=== PATIENT | female | born 1985 | race American Indian/Alaskan Native ===

== ENCOUNTER 2016-08-24 09:26 | Emergency (ER) | payer MEDICAID ==
[2016-08-24 10:03] VITALS: BP 131/87
--- NOTE | 2016-08-24 10:49 | XRay Report ---
Right 10 index finger 3 views: History: No acute abnormality. No fracture dislocation or periosteal reaction. Impression: Essentially negative right index finger.
--- NOTE | 2016-08-24 10:50 | XRay Report ---
Left wrist 3 views: History: Injury to left wrist. Findings: No articular abnormality. No fracture or dislocation. Impression: Essentially negative left wrist.
--- NOTE | 2016-08-24 11:17 | Emergency Department Report ---
ED Upper Extremity Inj HPI - General Chief Complaint: Extremity Injury, Upper Stated Complaint: LEFT WRIST PAIN Time Seen by Provider: 08/24/16 11:08 Source: patient Mode of arrival: Ambulatory Limitations: No Limitations - History of Present Illness Other Extremity Injury: Wrist: Left Other Injuries: none Severity scale (0 -10): 5 Worsens With: movement of extremity - Related Data Previous Rx's Medication Instructions Recorded Last Taken Type Fluconazole [Diflucan] 150 mg PO ONCE #1 tablet 07/15/14 Unknown Rx Phenazopyridine [Pyridium] 200 mg PO TID #10 tablet 07/15/14 Unknown Rx Sulfamethoxazole/Trimethoprim 1 each PO BID #20 tablet 07/15/14 Unknown Rx [Bactrim Ds] traMADol [Ultram] 50 mg PO Q6HR PRN #14 tablet 07/15/14 Unknown Rx Acetaminophen/Codeine [Tylenol #3] 1 tab PO Q6H PRN #15 tab 06/17/15 Unknown Rx traMADol [Ultram 50 MG tab] 50 mg PO Q4HR PRN #15 tablet 08/24/16 Unknown Rx Allergies Allergy/AdvReac Type Severity Reaction Status Date / Time No Known Allergies Allergy Unverified 08/24/16 10:03 ED Review of Systems ROS: Stated complaint: LEFT WRIST PAIN Other details as noted in HPI Patient complains of injuring the left wrist yesterday while lifting furniture. Denies falling down or dropping anything on her wrist patient just states it hurts from lifting heavy objects. Patient denies any other injuries or other complaints. Constitutional: denies: chills, fever Respiratory: denies: cough, shortness of breath, wheezing Musculoskeletal: arthralgia Skin: denies: rash, lesions ED Past Medical Hx - Past Medical History Previous Medical History?: No - Surgical History Past Surgical History?: Yes Additional Surgical History: tubal. tonsils - Social History Smoking Status: Current Every Day Smoker Substance Use Type: Alcohol, Marijuana - Medications Home Medications: Home Medications Medication Instructions Recorded Confirmed Last Taken Type Fluconazole [Diflucan] 150 mg PO ONCE #1 tablet 07/15/14 Unknown Rx Phenazopyridine [Pyridium] 200 mg PO TID #10 tablet 07/15/14 Unknown Rx Sulfamethoxazole/Trimethoprim 1 each PO BID #20 tablet 07/15/14 Unknown Rx [Bactrim Ds] traMADol [Ultram] 50 mg PO Q6HR PRN #14 tablet 07/15/14 Unknown Rx Acetaminophen/Codeine [Tylenol #3] 1 tab PO Q6H PRN #15 tab 06/17/15 Unknown Rx traMADol [Ultram 50 MG tab] 50 mg PO Q4HR PRN #15 tablet 08/24/16 Unknown Rx ED Physical Exam - General Limitations: No Limitations General appearance: alert, in no apparent distress - Head Head exam: Present: atraumatic, normocephalic - Eye Eye exam: Present: normal appearance - ENT ENT exam: Present: mucous membranes moist - Neck Neck exam: Present: normal inspection - Respiratory Respiratory exam: Absent: respiratory distress - Cardiovascular Cardiovascular Exam: Present: regular rate - Expanded Upper Extremity Exam Left Forearm Wrist exam: Present: tenderness. Absent: swelling, abrasion, ecchymosis , deformity, crepidus, tenderness over anatomical snuff box Hand Wrist exam: Present: normal inspection, full ROM. Absent: tenderness, swelling, abrasion, ecchymosis, deformity, crepidus, dislocation, erythema, nail avulsion, subungual hematoma Neuro motor exam: Present: wrist extension intact, thumb opposition intact Neurosensory exam: Present: 2-point discrimination, radial nerve intact, ulnar nerve intact Vascular: Present: normal capillary refill. Absent: vascular compromise - Back Exam Back exam: Present: normal inspection - Neurological Exam Neurological exam: Present: alert, oriented X3 - Skin Skin exam: Present: warm, dry, intact, normal color. Absent: rash ED Course Vital Signs 08/24/16 09:55 Temperature 99.1 F Pulse Rate 67 Respiratory 20 Rate Blood Pressure 131/87 O2 Sat by Pulse 98 Oximetry Critical care attestation.: If time is entered above; I have spent that time in minutes in the direct care of this critically ill patient, excluding procedure time. ED Disposition Clinical Impression: Left wrist sprain Disposition: DISCHARGED TO HOME OR SELFCARE Is pt being admited?: No Condition: Stable Instructions: Wrist Sprain (ED) Prescriptions: traMADol [Ultram 50 MG tab] 50 mg PO Q4HR PRN #15 tablet PRN Reason: Pain Forms: Work/School Release Form(ED)
== END 2016-08-24 11:37 | disposition home or self-care (01) ==
LOC: ED 09:26
DX: M25.532 Pain in left wrist (principal); S63.502A Unspecified sprain of left wrist, initial encounter; F17.200 Nicotine dependence, unspecified, uncomplicated; F12.90 Cannabis use, unspecified, uncomplicated; X58.XXXA Exposure to other specified factors, initial encounter; Y93.9 Activity, unspecified; Y99.9 Unspecified external cause status; Y92.89 Other specified places as the place of occurrence of the external cause

== ENCOUNTER 2017-05-09 12:17 | Emergency (ER) | payer MEDICAID ==
[2017-05-09 12:23] VITALS: BP 138/98
[2017-05-09] MEDS ORDERED: NORCO 7.5/325 PO ONE (12:56)
--- NOTE | 2017-05-09 13:26 | Emergency Department Report ---
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) Injury: Foot: Right Type of Injury: other (NO FALL OR SPECIFIC TRAUMA) Place: work Severity: mild Improves With: nothing Worsens With: nothing Context: other (NONE) - Related Data Previous Rx's Medication Instructions Recorded Last Taken Type traMADol [Ultram] 50 mg PO Q6HR PRN #12 tablet 05/09/17 Unknown Rx Allergies Allergy/AdvReac Type Severity Reaction Status Date / Time No Known Allergies Allergy Verified 05/09/17 12:20 ED Review of Systems ROS: Stated complaint: FOOT PAIN Other details as noted in HPI Comment: All other systems reviewed and negative Musculoskeletal: other (FOOT PAIN) ED Past Medical Hx - Past Medical History Previous Medical History?: No - Surgical History Additional Surgical History: tubal. tonsils - Social History Smoking Status: Current Every Day Smoker Substance Use Type: None - Medications Home Medications: Home Medications Medication Instructions Recorded Confirmed Last Taken Type traMADol [Ultram] 50 mg PO Q6HR PRN #12 tablet 05/09/17 Unknown Rx ED Physical Exam - General Limitations: No Limitations General appearance: alert - Eye Eye exam: Present: PERRL - ENT ENT exam: Present: mucous membranes moist - Neck Neck exam: Present: normal inspection - Respiratory Respiratory exam: Present: normal lung sounds bilaterally - Cardiovascular Cardiovascular Exam: Present: regular rate - GI/Abdominal GI/Abdominal exam: Present: soft - Rectal Rectal exam: Present: deferred - Extremities Exam Extremities exam: Present: full ROM, normal capillary refill, other (R LAT FOOT SOFT TISSUE SWELLING. GOOD DP/PT BILATERAL. RAPID CAP REFILL. FULL ROM. ). Absent: tenderness - Expanded Lower Extremity Exam Right Upper Leg exam: Present: normal inspection Knee exam: Present: normal inspection Lower Leg exam: Present: normal inspection Ankle exam: Present: normal inspection Foot/Toe exam: Present: swelling Gait: Positive: observed and normal 1 - SOFT TISSUE SWELLING. NOT OVER PLANTAR FAS. AREA. ACHILLES INTACT. GOOD PULSES. RAPID CAP REFILL. N/V INTACT ED Course Vital Signs 05/09/17 12:20 Temperature 98.3 F Pulse Rate 81 Respiratory 20 Rate Blood Pressure 138/98 O2 Sat by Pulse 97 Oximetry - Reevaluation(s) Reevaluation #1: 05/09/17 13:49 ICE MEDICATED XRAY NOTED ED Lower Extremity MDM - Radiology Data Radiology results: report reviewed, image reviewed - Medical Decision Making SOFT TISSUE SWELLING - Differential Diagnosis RO FX Critical care attestation.: If time is entered above; I have spent that time in minutes in the direct care of this critically ill patient, excluding procedure time. ED Disposition Clinical Impression: Foot pain Disposition: - TO HOME OR SELFCARE Is pt being admited?: No Does the pt Need Aspirin: No Condition: Stable Instructions: Foot Sprain (ED) Additional Instructions: ICE REST ELEVATE MOTRIN 800 MG OVER THE COUNTER, WITH FOOD, EVERY 8 HOURS FOR MILD PAIN; THIS TREATS THE PROBLEM ULTRAM FOR SEVERE PAIN INVEST IN SOME SHOES WITH ADEQUATE SUPPORT FOR WORK FOLLOW UP ORTHO IF PERSISTS XRAY NO FRACTURE TODAY Prescriptions: traMADol [Ultram] 50 mg PO Q6HR PRN #12 tablet PRN Reason: Pain Referrals: DEBBIE ROMERO JR, MD [Primary Care Provider] - 3-5 Days YORDY GREENE MD [Staff Physician] - 3-5 Days Forms: Work/School Release Form(ED) Time of Disposition: 13:50
--- NOTE | 2017-05-09 13:46 | XRay Report ---
X-RAY RIGHT FOOT THREE VIEWS: 05/09/17 12:23:00 CLINICAL: Pain. FINDINGS: No fracture or dislocation. Moderate soft tissue swelling of the forefoot and midfoot. No soft tissue air or foreign body. IMPRESSION: Nonspecific soft tissue edema. No bone or joint abnormality.
== END 2017-05-09 14:00 | disposition home or self-care (01) ==
LOC: ED 12:17
DX: M79.671 Pain in right foot (principal); F17.200 Nicotine dependence, unspecified, uncomplicated
CPT/HCPCS: 99283

== ENCOUNTER 2017-05-18 09:48 | Emergency (ER) | payer MEDICAID ==
[2017-05-18] MEDS ORDERED: DECADRON IV STA (10:36)
--- NOTE | 2017-05-18 10:36 | Emergency Department Report ---
HPI - General Chief Complaint: Upper Respiratory Infection Time Seen by Provider: 05/18/17 10:35 - HPI HPI: Patient here report that she has cough, cold, fever and chill, headache and body ache with nasal congestion, sore throat 2 days. She says she's been taking [id number] cough and cold but she is still having symptoms. Patient reports pain generalized 10 out of 10 and achy. Worse with moving around bed or resting. Denies any contact with anyone that has been sick but she said her daughter she also brought in got sick after her. Patient also complaining of nausea without any vomiting. The abdominal pain. Denies any chest pain or shortness of breath. Denies any urinary burning frequency or urgency. ED Past Medical Hx - Past Medical History Previous Medical History?: No - Surgical History Past Surgical History?: Yes Additional Surgical History: tubal. tonsils - Family History Family history: hypertension - Social History Smoking Status: Current Every Day Smoker Substance Use Type: None - Medications Home Medications: Home Medications Medication Instructions Recorded Confirmed Last Taken Type traMADol [Ultram] 50 mg PO Q6HR PRN #12 tablet 05/09/17 Unknown Rx Ibuprofen [Motrin] 600 mg PO Q8H PRN 5 Days #15 tablet 05/18/17 Unknown Rx Oseltamivir [Tamiflu] 75 mg PO BID 5 Days #10 cap 05/18/17 Unknown Rx Promethazine [Phenergan TAB] 25 mg PO Q8HR PRN 4 Days #12 tab 05/18/17 Unknown Rx guaiFENesin/CODEINE [Robitussin AC] 5 ml PO Q8H PRN 5 Days #75 05/18/17 Unknown Rx oral.liqd ED Review of Systems ROS: Stated complaint: BODY PAINS Other details as noted in HPI Comment: All other systems reviewed and negative Constitutional: weakness Eyes: denies: eye pain, eye discharge ENT: throat pain, congestion. denies: ear pain, dental pain Respiratory: cough. denies: orthopnea, shortness of breath, SOB with exertion, SOB at rest, stridor, wheezing Cardiovascular: denies: chest pain, palpitations, dyspnea on exertion, orthopnea , edema, syncope, paroxysmal nocturnal dyspnea Gastrointestinal: denies: abdominal pain, nausea, vomiting, diarrhea, constipation, hematemesis, melena, hematochezia Genitourinary: discharge. denies: urgency, dysuria, frequency, hematuria, abnormal menses, dyspareunia Musculoskeletal: myalgia. denies: back pain, joint swelling, arthralgia Skin: denies: rash Neurological: headache. denies: weakness, numbness, paresthesias, confusion, abnormal gait, vertigo Physical Exam - Physical Exam Vital Signs: Vital Signs 05/18/17 10:07 Temperature 99.4 F Pulse Rate 90 Respiratory 18 Rate Blood Pressure 145/100 O2 Sat by Pulse 100 Oximetry Vital Signs 05/18/17 05/18/17 10:07 11:57 Temperature 99.4 F 99.4 F Pulse Rate 90 100 H Respiratory 18 18 Rate Blood Pressure 145/100 Blood Pressure 140/84 [Left] O2 Sat by Pulse 100 Oximetry General: This is a 32-year-old female that looks mildly ill but in no acute distress. She is nontoxic in appearance Physical Exam: Head: Normocephalic, atraumatic, no abrasion, no bruising and no contusion. Eyes: Biateral pupils equal and reactive to light, bilateral EOM intact.. Bilateral conjunctival and sclera without injection, normal accommodation. Neck: Supple, No Cervical adenopathy, full range of motion and no C-spine tenderness. No swelling or tracheal deviation normal reflexes Nose: Nasal mucosa congested with erythema. Clear drainage noted. No maxillary or frontal sinus tenderness. Ears: Bilateral TM congested without erythema. Bilateral EAC without any redness or no drainage. No mastoid bone tenderness Mouth: Moist, no pharyngeal exudate or erythema. Uvula is midline and oral airways patent. No peritonsillar abscess. Cardiovascular: S1, S2.reg rate and rhythm. No murmur. Capillary refill is less then 3 seconds. Lungs: Clear to auscultate bilaterally. No rhonchi, wheezes or rales. No chest wall tenderness. No chest contusion. No bruising to chest. Dry cough. MSK: Strength 5/5 in all extremities. No joint deformity or crepitus. Normal inspection. Full range of motion to all extremities Abdomen: Soft, Non-tender to palpate in all quadrants, no guarding or rebound tenderness, positive bowel sounds in all quadrants. No CVA tenderness. No hernia, bruit or mass. No rigidity or distention. Neuro: Patient alert and oriented 3, GCS at 14, normal gait, no motor or sensory deficit. Speech is clear and no facial drooping. Normal reflexes. Extremities: No clubbing, cyanosis or edema. +2 pulses. No neurovascular compromise. No joint crepitus, effusion or abnormality. +5 strength in all extremities. Skin: Clean, dry and intact. No rash or lesions. Psych: Normal mood and behavior ED Course Vital Signs 05/18/17 10:07 Temperature 99.4 F Pulse Rate 90 Respiratory 18 Rate Blood Pressure 145/100 O2 Sat by Pulse 100 Oximetry Vital Signs 05/18/17 05/18/17 10:07 11:57 Temperature 99.4 F 99.4 F Pulse Rate 90 100 H Respiratory 18 18 Rate Blood Pressure 145/100 Blood Pressure 140/84 [Left] O2 Sat by Pulse 100 Oximetry - Reevaluation(s) Reevaluation #1: 05/18/17 12:19 Patient's strep test is negative, influenza A- and influenza B-positive. This was communicated to the patient. Patient orally hydrated in the emergency room without any episode of vomiting. She was given Zofran 8 mg ODT, Motrin 800 mg by mouth and Decadron 10 mg IM in the emergency room and voiced that she felt better. ED Medical Decision Making - Lab Data Strep test negative and cultures pending Influenza a negative, influenza B-positive - Medical Decision Making ED course: She is here complaining of cough and cold-like symptoms with fever, sore throat and generalized aching. Strep test, rapid negative, cultures are pending. Influenza A negative and influenza B-positive. Results given to patient. She was given Motrin 800 mg by mouth, Zofran 8 mg ODT and Decadron 10 mg IM in emergency room. Patient orally hydrated in emergency room and she was able to drink 3 cups of orange juice without any vomiting. She says she felt better. I discussed the patient that she needs to rest for 3 days, increase her fluid intake to 3 L of water per day. Patient given prescription for Tamiflu and I discussed with her that she will need to read instructions and side effect and decide whether or not she would like to take medication. She is also given prescription for Motrin, codeine/guaifenesin for cough Phenergan for nausea. With her that she'll need to follow-up with her primary care physician and 2-3 days and if she does not have a primary care physician she can follow up with outside Medical Center. Patient voiced understanding discharge instruction and treatment plan and discharged home with her family in stable condition. Critical care attestation.: If time is entered above; I have spent that time in minutes in the direct care of this critically ill patient, excluding procedure time. ED Disposition Clinical Impression: Influenza B, Upper respiratory infection with cough and congestion, Fever in adult, Myalgia, Nausea alone Pharyngitis Qualifiers: Pharyngitis/tonsillitis etiology: unspecified etiology Qualified Code(s): J02.9 - Acute pharyngitis, unspecified Disposition: - TO HOME OR SELFCARE Is pt being admited?: No Does the pt Need Aspirin: No Condition: Stable Instructions: Pharyngitis (ED), Influenza (ED), Acute Nausea and Vomiting (ED) , Viral Syndrome (ED), Acute Cough (ED) Additional Instructions: Please increase her fluid intake to 3 L of fluid per day. Rest for 72 hours Take Motrin as prescribed for fever and body aches Please follow up with primary care physician in 2-3 days take Tamiflu for influenza but this does not guarantee that your symptoms will be reduced. These read package insert for multiple side effects before taken and he can decide whether or not you need to take this. 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 while taking this medication as it causes drowsiness Take phenergan for nausea but please do not drive or operate heavy machinery while taking this medication because it can cause drowsiness Prescriptions: guaiFENesin/CODEINE [Robitussin AC] 5 ml PO Q8H PRN 5 Days #75 oral.liqd PRN Reason: Cough Ibuprofen [Motrin] 600 mg PO Q8H PRN 5 Days #15 tablet PRN Reason: Pain Oseltamivir [Tamiflu] 75 mg PO BID 5 Days #10 cap Promethazine [Phenergan TAB] 25 mg PO Q8HR PRN 4 Days #12 tab PRN Reason: Nausea Referrals: [facility] [Outside] - 3-5 Days Your, PCP [Other] - 3-5 Days Forms: Accompanied Note
[2017-05-18] MEDS ORDERED: MOTRIN PO ONE (10:37)
[2017-05-18] MEDS ORDERED: ZOFRAN ODT PO ONE (10:37)
[2017-05-18 11:58] VITALS: BP 140/84
== END 2017-05-18 12:37 | disposition home or self-care (01) ==
LOC: ED 09:48
DX: J10.1 Influenza due to other identified influenza virus with other respiratory manifestations (principal); J02.9 Acute pharyngitis, unspecified; R11.0 Nausea; M79.1 Myalgia; F17.200 Nicotine dependence, unspecified, uncomplicated
CPT/HCPCS: 87116; 87400; 87430; 96374; 99283; J1100; Q0162

== ENCOUNTER 2018-10-25 13:38 | Emergency (ER) | payer MEDICAID, OTHER ==
--- NOTE | 2018-10-25 13:54 | Emergency Department Report ---
Blank Doc - Documentation Documentation: This is a 33-year-old female that presents with left bartholin abscess. This initial assessment/diagnostic orders/clinical plan/treatment(s) is/are subject to change based on patient's health status, clinical progression and re- assessment by fellow clinical providers in the ED. Further treatment and workup at subsequent clinical providers discretion. Patient/guardians urged not to elope from the ED as their condition may be serious if not clinically assessed and managed. Initial orders include: 1- Patient sent to [facility] for further evaluation and treatment
--- NOTE | 2018-10-25 14:34 | Emergency Department Report ---
Abscess Boil HPI - HPI Chief Complaint: Skin/Abscess/Foreign Body Stated Complaint: VAGINAL BOIL/PAIN Time Seen by Provider: 10/25/18 13:53 Duration: >1 Week Location: Other (mons pubis) History: Yes Pain, Yes Purulent Drainage, No Fever, No Foreign Body, No Previous History, No Insect Bite HPI: Ms. Mejia is a 33 yo female who has had boil at mons pubis region for one month. Small pimple initally went away. Then return. Mild tenderness at the area. Home Medications: Previous Rx's Medication Instructions Recorded Last Taken Type traMADol [Ultram] 50 mg PO Q6HR PRN #12 tablet 05/09/17 Unknown Rx Ibuprofen [Motrin] 600 mg PO Q8H PRN 5 Days #15 tablet 05/18/17 Unknown Rx Oseltamivir [Tamiflu] 75 mg PO BID 5 Days #10 cap 05/18/17 Unknown Rx Promethazine [Phenergan TAB] 25 mg PO Q8HR PRN 4 Days #12 tab 05/18/17 Unknown Rx guaiFENesin/CODEINE [Robitussin AC] 5 ml PO Q8H PRN 5 Days #75 05/18/17 Unknown Rx oral.liqd Sulfamethoxazole/Trimethoprim 1 each PO BID 7 Days #14 tablet 10/25/18 Unknown Rx [Bactrim DS TAB] Allergies/Adverse Reactions: Allergies Allergy/AdvReac Type Severity Reaction Status Date / Time No Known Allergies Allergy Verified 10/25/18 13:48 ED Review of Systems ROS: Stated complaint: VAGINAL BOIL/PAIN Other details as noted in HPI Constitutional: denies: fever, malaise Skin: rash, lesions Neurological: denies: numbness, paresthesias ED Past Medical Hx - Past Medical History Previous Medical History?: No - Surgical History Past Surgical History?: Yes Additional Surgical History: tubal. tonsilectomy - Social History Smoking Status: Current Every Day Smoker Substance Use Type: None - Medications Home Medications: Home Medications Medication Instructions Recorded Confirmed Last Taken Type traMADol [Ultram] 50 mg PO Q6HR PRN #12 tablet 17 Unknown Rx Ibuprofen [Motrin] 600 mg PO Q8H PRN 5 Days #15 tablet 05/18/17 Unknown Rx Oseltamivir [Tamiflu] 75 mg PO BID 5 Days #10 cap 05/18/17 Unknown Rx Promethazine [Phenergan TAB] 25 mg PO Q8HR PRN 4 Days #12 tab 05/18/17 Unknown Rx guaiFENesin/CODEINE [Robitussin AC] 5 ml PO Q8H PRN 5 Days #75 05/18/17 Unknown Rx oral.liqd Sulfamethoxazole/Trimethoprim 1 each PO BID 7 Days #14 tablet 10/25/18 Unknown Rx [Bactrim DS TAB] ED Abscess Boil Physical Exam - Exam General: Vital signs noted. No distress. Alert and acting appropriately. Size: 2 cm Exam: Yes Tenderness, Yes Fluctuance, Yes Normal Neurologic Exam, No Surrounding Cellulites/Erythema, No Lymphangitis, No Crepitation Exam: 2.5 cm abscess with pustules left mons pubis Critical care attestation.: If time is entered above; I have spent that time in minutes in the direct care of this critically ill patient, excluding procedure time. ED Medical Decision Making - Medical Decision Making small abscess left mons pubis will resolve with antibiotics I offered I&D with stab incision. Ms. Mejia declined Rx: bactrim ED Disposition Clinical Impression: Abscess of pubic region Disposition: DC-01 TO HOME OR SELFCARE Is pt being admited?: No Does the pt Need Aspirin: No Condition: Stable Instructions: Abscess (ED) Prescriptions: Sulfamethoxazole/Trimethoprim [Bactrim DS TAB] 1 each PO BID 7 Days #14 tablet
== END 2018-10-25 14:49 | disposition home or self-care (01) ==
LOC: ED 13:38
DX: L02.214 Cutaneous abscess of groin (principal); F17.200 Nicotine dependence, unspecified, uncomplicated; Z90.89 Acquired absence of other organs; Z98.51 Tubal ligation status

== ENCOUNTER 2019-01-15 10:18 | Emergency (ER) | payer MEDICAID ==
[2019-01-15 10:47] VITALS: BP 154/90
== END 2019-01-15 12:15 | disposition left against medical advice (07) ==
LOC: ED 10:18
DX: J02.9 Acute pharyngitis, unspecified (principal); Z53.21 Procedure and treatment not carried out due to patient leaving prior to being seen by health care provider

== ENCOUNTER 2019-03-10 07:54 | Emergency (ER) | payer MEDICAID ==
[2019-03-10 07:58] VITALS: BP 148/97
[2019-03-10] MEDS ORDERED: BOOSTRIX IM ONE (08:20)
--- NOTE | 2019-03-10 08:22 | Emergency Department Report ---
ED Upper Extremity Inj HPI - General Chief Complaint: Extremity Injury, Upper Stated Complaint: RT WRIST PAIN/SWELLING/BLEEDING Time Seen by Provider: 03/10/19 08:17 Source: patient Mode of arrival: Ambulatory Limitations: No Limitations - History of Present Illness Initial Comments: Patient is 34 years old female with no significant past medical history. Patient presented to the ER complaining of right wrist pain since yesterday. Patient stated that hard home door slammed her wrist yesterday. Patient denied any other injuries. MD Complaint: Injury to:: right, wrist -: Last night Other Extremity Injury: Wrist: Right Other Injuries: none Place: home Improves With: movement Context: direct blow Associated Symptoms: denies other symptoms - Related Data Previous Rx's Medication Instructions Recorded Last Taken Type traMADol [Ultram] 50 mg PO Q6HR PRN #12 tablet 05/09/17 Unknown Rx Ibuprofen [Motrin] 600 mg PO Q8H PRN 5 Days #15 tablet 05/18/17 Unknown Rx Oseltamivir [Tamiflu] 75 mg PO BID 5 Days #10 cap 05/18/17 Unknown Rx Promethazine [Phenergan TAB] 25 mg PO Q8HR PRN 4 Days #12 tab 05/18/17 Unknown Rx guaiFENesin/CODEINE [Robitussin AC] 5 ml PO Q8H PRN 5 Days #75 05/18/17 Unknown Rx oral.liqd Sulfamethoxazole/Trimethoprim 1 each PO BID 7 Days #14 tablet 10/25/18 Unknown Rx [Bactrim DS TAB] Allergies Allergy/AdvReac Type Severity Reaction Status Date / Time No Known Allergies Allergy Verified 10/25/18 13:48 ED Review of Systems ROS: Stated complaint: RT WRIST PAIN/SWELLING/BLEEDING Other details as noted in HPI Comment: All other systems reviewed and negative Constitutional: denies: chills, fever Respiratory: denies: cough, SOB with exertion Cardiovascular: denies: chest pain, palpitations Gastrointestinal: denies: abdominal pain, nausea, vomiting ED Past Medical Hx - Past Medical History Previous Medical History?: No - Surgical History Past Surgical History?: Yes Additional Surgical History: tubal. tonsilectomy - Social History Smoking Status: Never Smoker Substance Use Type: None - Medications Home Medications: Home Medications Medication Instructions Recorded Confirmed Last Taken Type traMADol [Ultram] 50 mg PO Q6HR PRN #12 tablet 05/09/17 Unknown Rx Ibuprofen [Motrin] 600 mg PO Q8H PRN 5 Days #15 tablet 05/18/17 Unknown Rx Oseltamivir [Tamiflu] 75 mg PO BID 5 Days #10 cap 05/18/17 Unknown Rx Promethazine [Phenergan TAB] 25 mg PO Q8HR PRN 4 Days #12 tab 05/18/17 Unknown Rx guaiFENesin/CODEINE [Robitussin AC] 5 ml PO Q8H PRN 5 Days #75 05/18/17 Unknown Rx oral.liqd Sulfamethoxazole/Trimethoprim 1 each PO BID 7 Days #14 tablet 10/25/18 Unknown Rx [Bactrim DS TAB] ED Physical Exam - General Limitations: No Limitations General appearance: alert, in no apparent distress - Head Head exam: Present: atraumatic, normocephalic, normal inspection - Eye Eye exam: Present: normal appearance - ENT ENT exam: Present: normal exam - Respiratory Respiratory exam: Present: normal lung sounds bilaterally - Cardiovascular Cardiovascular Exam: Present: regular rate, normal heart sounds - Expanded Upper Extremity Exam Right Shoulder Exam: Present: normal inspection Upper Arm exam: Present: normal inspection Forearm Wrist exam: Present: tenderness, abrasion, ecchymosis. Absent: laceration, deformity, crepidus Hand Wrist exam: Present: tenderness Vascular: Present: normal capillary refill - Neurological Exam Neurological exam: Present: alert, oriented X3, CN II-XII intact, normal gait ED Course Vital Signs 03/10/19 03/10/19 07:57 07:58 Temperature 98.0 F Pulse Rate 73 Respiratory 18 Rate Blood Pressure 148/97 O2 Sat by Pulse 100 Oximetry - Orthopedic Splinting/Casting Injury #1 Side: right Upper Extremity Injury Location: forearm Upper Extremity Immobilizer: sugartong splint Additional Comments: Intact neurovascular after splinting. ED Medical Decision Making - Radiology Data Radiology results: report reviewed - Medical Decision Making Right wrist x-ray showed a nondisplaced fracture into the metaphysis of the distal radius. Patient received sugar tong splint and given a referral to Dr. Munoz. Critical care attestation.: If time is entered above; I have spent that time in minutes in the direct care of this critically ill patient, excluding procedure time. ED Disposition Clinical Impression: Distal radial fracture Disposition: DC-01 TO HOME OR SELFCARE Is pt being admited?: No Condition: Stable Instructions: Wrist Fracture in Adults (ED) Referrals: YORDY MUNOZ MD [Staff Physician] - 3-5 Days
--- NOTE | 2019-03-10 08:35 | XRay Report ---
RIGHT WRIST, 4 VIEWS INDICATION: Right wrist injury, slammed in door. COMPARISON: None. IMPRESSION: There is moderate to severe lateral soft tissue swelling adjacent to the distal radius. There is a cortical defect in the lateral distal radial metaphysis consistent with a nondisplaced fra cture. The distal ulna, carpal bones and visualized metacarpals are intact. No significant joint path ology. Signer Name: Yong Benitez Jr, MD Signed: 03/10/2019 8:31 AM Workstation Name: [id number]
[2019-03-10] MEDS ORDERED: NORCO 5/325 PO ONE (09:09)
[2019-03-10] MEDS ORDERED: ZOFRAN ODT PO ONE (09:09)
== END 2019-03-10 09:36 | disposition home or self-care (01) ==
LOC: ED 07:54
DX: S52.501A Unspecified fracture of the lower end of right radius, initial encounter for closed fracture (principal); Z79.899 Other long term (current) drug therapy; Z79.1 Long term (current) use of non-steroidal anti-inflammatories (NSAID); Z98.51 Tubal ligation status; Z90.89 Acquired absence of other organs; W01.198A Fall on same level from slipping, tripping and stumbling with subsequent striking against other object, initial encounter; Y93.89 Activity, other specified; Y92.098 Other place in other non-institutional residence as the place of occurrence of the external cause; Y99.8 Other external cause status
CPT/HCPCS: 90471; 90715; Q0162

== ENCOUNTER 2020-03-04 08:52 | Emergency (ER) | payer MEDICAID ==
[2020-03-04 08:58] VITALS: BP 129/92
[2020-03-04] MEDS ORDERED: IBUPROFEN 800 MG TAB PO ONE (09:04)
--- NOTE | 2020-03-04 09:09 | Emergency Department Report ---
Upper Extremity - HPI Chief Complaint: Extremity Injury, Upper Stated Complaint: RT MID FINGER DISCOMFORT Upper Extremity: Right Middle Finger Occurred When: >5 Days Mechanism: Unsure Severity: severe Symptoms: Yes Pain with Movement (Not able to straighten secondary to pain), Yes Limited Range of Movement (Not able to straighten secondary to pain) Other History: The patient was evaluated in the emergency department for symptoms described in the history of present illness. He/she was evaluated in the context of the global COVID-19 pandemic, which necessitated consideration that the patient might be at risk for infection with the virus that causes COVID-19. Institutional protocols and algorithms that pertain to the evaluation of patients at risk for COVID-19 are in a state of rapid change based on information released by regulatory bodies including the CDC and federal and state organizations. These policies and algorithms were followed during the patient's care in the emergency department. Please note that these policies, procedures and recommendations changed on a rapid basis. 35-year-old - [place] female presents to the emergency room complaining of right middle finger discomfort times a couple of months. Patient reports in the last 2 to 3 days it is gotten worse where she is not able to straighten her right middle finger. Patient denies knowing any injury. She reports she has been taking ibuprofen which helps some but does not allow her to fully extend her finger. Patient reports her last menstrual period was 03/02/2020. ED Review of Systems ROS: Stated complaint: RT MID FINGER DISCOMFORT Other details as noted in HPI ED Past Medical Hx - Past Medical History Previous Medical History?: No - Surgical History Past Surgical History?: Yes Additional Surgical History: tubal. tonsilectomy - Social History Smoking Status: Current Every Day Smoker Substance Use Type: None - Medications Home Medications: Home Medications Medication Instructions Recorded Confirmed Last Taken Type traMADoL [Ultram] 50 mg PO Q6HR PRN #12 tablet 05/09/17 Unknown Rx Ibuprofen [Motrin] 600 mg PO Q8H PRN 5 Days #15 tablet 05/18/17 Unknown Rx Oseltamivir [Tamiflu] 75 mg PO BID 5 Days #10 cap 05/18/17 Unknown Rx Promethazine [Phenergan TAB] 25 mg PO Q8HR PRN 4 Days #12 tab 05/18/17 Unknown Rx guaiFENesin/CODEINE [Robitussin AC] 5 ml PO Q8H PRN 5 Days #75 05/18/17 Unknown Rx oral.liqd Sulfamethoxazole/Trimethoprim 1 each PO BID 7 Days #14 tablet 10/25/18 Unknown Rx [Bactrim DS TAB] Ondansetron [Zofran Odt] 4 mg PO Q8HR PRN #14 tab.rapdis 03/10/19 Unknown Rx traMADoL [Ultram 50 MG tab] 50 mg PO Q4HR PRN #14 tablet 03/10/19 Unknown Rx Ibuprofen [Motrin 800 MG tab] 800 mg PO Q8HR PRN #30 tablet 03/04/20 Unknown Rx Upper Extremity Exam - Exam General: Vital signs noted. No distress. Alert and acting appropriately. Head and Torso: No HEENT Abnormality, No Neck Tenderness, No Chest/Lungs Abnormality, No Abdominal Tenderness, No Back Tenderness Shoulder Exam: Yes Normal Range of Motion in Shoulder, No Shoulder Tenderness, No Clavicle Tenderness, No Shoulder Deformity, No AC Joint Tenderness Arm Exam: No Arm/Humerus Tenderness, No Arm Deformity Elbow: No Elbow Tenderness, No Normal Range of Motion in Elbow, No Elbow Deformity Forearm: No Forearm Tenderness, No Forearm Deformity, No Pain with Pronation, No Pain with Supination Wrist: Yes Normal ROM in Wrist, No Wrist Tenderness, No Wrist Deformity, No Snuffbox Tenderness, No Pain with Axial Thumb Compression Hand: Yes Digit Tenderness (Right middle finger), Yes Tendon Dysfunction, No Hand Tenderness, No Hand Deformity, No Normal ROM in Digit(s) (Decreased extension of finger), No Digit(s) Deformity CMS Exam: No Broken Skin, No Normal Distal Pulses, No Normal Capillary Refill, No Normal Distal Sensation ED Course Vital Signs 03/04/20 08:56 Temperature 98.1 F Pulse Rate 94 H Respiratory 18 Rate Blood Pressure 129/92 O2 Sat by Pulse 100 Oximetry ED Medical Decision Making - Radiology Data Radiology results: report reviewed [facility] [address] [place] [address] XRay Report Signed Patient: ELY NUNO MR#: [id number] : 1985 Acct:[id number] Age/Sex: 35 / F ADM Date: 03/04/20 Loc: ED Attending Dr: Ordering Physician: PATRICE RAJPUT Date of Service: 03/04/20 Procedure(s): XR finger(s) 2+V RT Accession Number(s): [id number] cc: PATRICE RAJPUT Fluoro Time In Minutes: RIGHT FINGER(S) 3 VIEW(S) INDICATION / CLINICAL INFORMATION: middle finger pain COMPARISON: None available. FINDINGS: BONES / JOINT(S): No acute fracture or subluxation. No significant arthritis. SOFT TISSUES: No significant abnormality. ADDITIONAL FINDINGS: None. IMPRESSION: No acute osseous abnormality. Signer Name: Sina Solano MD Signed: 03/04/2020 9:27 AM Workstation Name: [id number] Transcribed By: SS Dictated By: SINA SOLANO Electronically Authenticated By: SINA SOLANO Signed Date/Time: 03/04/20926 DD/ 5 TD/TT: - Medical Decision Making 35-year-old -Serbian female presents to the emergency room complaining of right middle finger discomfort times a couple of months. Patient reports in the last 2 to 3 days it is gotten worse where she is not able to straighten her right middle finger. Patient denies knowing any injury. She reports she has been taking ibuprofen which helps some but does not allow her to fully extend her finger. Patient reports her last menstrual period was 03/02/2020. X-ray has been ordered. Ibuprofen for pain management. I did discuss the patient that there is a possibility that we will not be able to figure out why her finger is contracted and she most likely will need to follow-up with a hand specialist. Critical care attestation.: If time is entered above; I have spent that time in minutes in the direct care of this critically ill patient, excluding procedure time. ED Disposition Clinical Impression: Trigger finger, right middle finger Disposition: DC-01 TO HOME OR SELFCARE Is pt being admited?: No Does the pt Need Aspirin: No Condition: Stable Instructions: Trigger Finger (ED) Additional Instructions: X-rays negative for any acute findings. As I discussed previous that you will need to follow-up with that hand specialist I have listed their information below for your convenience. Take ibuprofen as needed for pain or Tylenol extra strength as needed for pain management. Prescriptions: Ibuprofen [Motrin 800 MG tab] 800 mg PO Q8HR PRN #30 tablet PRN Reason: Pain , Severe (7-10) Referrals: YORDY GREENE MD [Staff Physician] - 3-5 Days Adelita Lewis [Other] - 3-5 Days Forms: Work/School Release Form(ED)
--- NOTE | 2020-03-04 09:32 | XRay Report ---
RIGHT FINGER(S) 3 VIEW(S) INDICATION / CLINICAL INFORMATION: middle finger pain COMPARISON: None available. FINDINGS: BONES / JOINT(S): No acute fracture or subluxation. No significant arthritis. SOFT TISSUES: No significant abnormality. ADDITIONAL FINDINGS: None. IMPRESSION: No acute osseous abnormality. Signer Name: Tej Solano MD Signed: 03/04/2020 9:27 AM Workstation Name: [id number]
== END 2020-03-04 10:04 | disposition home or self-care (01) ==
LOC: ED 08:52
DX: M65.331 Trigger finger, right middle finger (principal); F17.200 Nicotine dependence, unspecified, uncomplicated; Z90.49 Acquired absence of other specified parts of digestive tract; Z98.51 Tubal ligation status; Z79.899 Other long term (current) drug therapy

== ENCOUNTER 2020-05-25 16:54 | Emergency (ER) | payer MEDICAID ==
[2020-05-25 17:03] VITALS: BP 134/92
[2020-05-25] MEDS ORDERED: SODIUM CHLORIDE 0.9% 1000 ML 1,000 ML IV ONE (17:27)
[2020-05-25] MEDS ORDERED: KETOROLAC 30 MG/1 ML INJ IV ONE (17:27)
--- NOTE | 2020-05-25 17:33 | Emergency Department Report ---
ED Abdominal Pain HPI - General Chief Complaint: Abdominal Pain Stated Complaint: STOMACH/BACK PAIN Time Seen by Provider: 05/25/20 17:22 Source: patient Mode of arrival: Ambulatory Limitations: No Limitations - History of Present Illness Initial Comments: Patient is a 35-year-old female with no pertinent past medical history presents emergency room for evaluation of abdominal pain and back pain. Patient states her symptoms began last Thursday. The pain from her abdomen does not radiate to her lower back. Patient describes her abdominal pain as sharp and cramp-like. The pain is episodic. She states that her back pain is located in a nonmidline p osition. And is more so on the lateral portions of her lumbar spine. She denies occurrence of fevers, vomiting, changes in her urinary pattern, diarrhea, vaginal discharge, vaginal bleeding or any history of trauma. Her pain is worsened by deep breathing and often times walking. Of note patient has had a tubal ligation. Review of systems positive only for nausea. MD Complaint: abdominal pain -: Gradual, days(s) (7) Radiation: none Migration to: no migration Severity: moderate Severity scale (0 -10): 5 Quality: sharp Consistency: intermittent Improves With: nothing Worsens With: other (movement, breathing deeply) Associated Symptoms: nausea. denies: vomiting, diarrhea, fever, constipation, dysuria - Related Data Previous Rx's Medication Instructions Recorded Last Taken Type traMADoL [Ultram] 50 mg PO Q6HR PRN #12 tablet 05/09/17 Unknown Rx Ibuprofen [Motrin] 600 mg PO Q8H PRN 5 Days #15 tablet 05/18/17 Unknown Rx Oseltamivir [Tamiflu] 75 mg PO BID 5 Days #10 cap 05/18/17 Unknown Rx Promethazine [Phenergan TAB] 25 mg PO Q8HR PRN 4 Days #12 tab 05/18/17 Unknown Rx guaiFENesin/CODEINE [Robitussin AC] 5 ml PO Q8H PRN 5 Days #75 05/18/17 Unknown Rx oral.liqd Sulfamethoxazole/Trimethoprim 1 each PO BID 7 Days #14 tablet 10/25/18 Unknown Rx [Bactrim DS TAB] Ondansetron [Zofran Odt] 4 mg PO Q8HR PRN #14 tab.rapdis 03/10/19 Unknown Rx traMADoL [Ultram 50 MG tab] 50 mg PO Q4HR PRN #14 tablet 03/10/19 Unknown Rx Ibuprofen [Motrin 800 MG tab] 800 mg PO Q8HR PRN #30 tablet 03/04/20 Unknown Rx Allergies Allergy/AdvReac Type Severity Reaction Status Date / Time No Known Allergies Allergy Verified 10/25/18 13:48 ED Review of Systems ROS: Stated complaint: STOMACH/BACK PAIN Other details as noted in HPI Constitutional: denies: chills, fever Eyes: denies: eye pain, eye discharge, vision change ENT: denies: ear pain, throat pain Respiratory: denies: cough, shortness of breath, wheezing Cardiovascular: denies: chest pain, palpitations Endocrine: no symptoms reported Gastrointestinal: as per HPI, abdominal pain, nausea. denies: vomiting, diarrhea, constipation, hematochezia Genitourinary: other (decreased urine output). denies: urgency, dysuria, discharge, dyspareunia Musculoskeletal: back pain (lumbar spine). denies: joint swelling, arthralgia Skin: denies: rash, lesions Neurological: denies: headache, weakness, paresthesias Psychiatric: denies: anxiety, depression Hematological/Lymphatic: denies: easy bleeding, easy bruising ED Past Medical Hx - Past Medical History Previous Medical History?: No - Surgical History Past Surgical History?: Yes Additional Surgical History: tubal. tonsilectomy - Social History Smoking Status: Current Every Day Smoker Substance Use Type: None - Medications Home Medications: Home Medications Medication Instructions Recorded Confirmed Last Taken Type traMADoL [Ultram] 50 mg PO Q6HR PRN #12 tablet 05/09/17 Unknown Rx Ibuprofen [Motrin] 600 mg PO Q8H PRN 5 Days #15 tablet 05/18/17 Unknown Rx Oseltamivir [Tamiflu] 75 mg PO BID 5 Days #10 cap 05/18/17 Unknown Rx Promethazine [Phenergan TAB] 25 mg PO Q8HR PRN 4 Days #12 tab 05/18/17 Unknown Rx guaiFENesin/CODEINE [Robitussin AC] 5 ml PO Q8H PRN 5 Days #75 05/18/17 Unknown Rx oral.liqd Sulfamethoxazole/Trimethoprim 1 each PO BID 7 Days #14 tablet 10/25/18 Unknown Rx [Bactrim DS TAB] Ondansetron [Zofran Odt] 4 mg PO Q8HR PRN #14 tab.rapdis 03/10/19 Unknown Rx traMADoL [Ultram 50 MG tab] 50 mg PO Q4HR PRN #14 tablet 03/10/19 Unknown Rx Ibuprofen [Motrin 800 MG tab] 800 mg PO Q8HR PRN #30 tablet 03/04/20 Unknown Rx ED Physical Exam - General Limitations: No Limitations General appearance: alert, in no apparent distress - Head Head exam: Present: atraumatic, normocephalic - Eye Eye exam: Present: normal appearance - ENT ENT exam: Present: mucous membranes moist - Neck Neck exam: Present: normal inspection - Respiratory Respiratory exam: Present: normal lung sounds bilaterally. Absent: respiratory distress - Cardiovascular Cardiovascular Exam: Present: regular rate, normal rhythm. Absent: systolic murmur, diastolic murmur, rubs, gallop - GI/Abdominal GI/Abdominal exam: Present: soft, normal bowel sounds. Absent: tenderness, guarding, rebound, rigid - Extremities Exam Extremities exam: Present: normal inspection - Back Exam Back exam: Present: normal inspection, paraspinal tenderness (bilateral flank). Absent: full ROM - Neurological Exam Neurological exam: Present: alert, oriented X3 - Psychiatric Psychiatric exam: Present: normal affect, normal mood - Skin Skin exam: Present: warm, dry, intact, normal color. Absent: rash ED Course Vital Signs 05/25/20 17:00 Temperature 98.3 F Pulse Rate 77 Respiratory 16 Rate Blood Pressure 134/92 [Right] O2 Sat by Pulse 100 Oximetry - Reevaluation(s) Reevaluation #1: 05/25/20 21:[address] abdomen devoid of any acute abnormalities. Additionally labs are unremarkable for acute pathology. Will discharge patient home with outpatient follow-up. ED Medical Decision Making - Lab Data Result diagrams: 05/25/20 17:26 05/25/20 17:26 - Radiology Data Radiology results: report reviewed, image reviewed - Medical Decision Making Patient is a 35-year-old female with no pertinent past medical history who presents emergency room for evaluation of low back pain and abdominal pain. Patient's vital signs stable on ED arrival. Physical exam nonfocal. Basic labs ordered and CT abdomen and pelvis were ordered as per patient request. Toradol provided for pain and Zofran for nausea. Will disposition pending ED work-up. I gave consideration to etiologies such as enteritis, colitis, musculoskeletal strain, hematoma, contusion, urinary tract infection, electrolyte disturbances, dehydration. Critical care attestation.: If time is entered above; I have spent that time in minutes in the direct care of this critically ill patient, excluding procedure time. ED Disposition Clinical Impression: Abdominal pain Back pain Qualifiers: Back pain location: low back pain Chronicity: acute Back pain laterality: bilateral Sciatica presence: without sciatica Qualified Code(s): M54.5 - Low back pain Disposition: TO HOME OR SELFCARE Is pt being admited?: No Does the pt Need Aspirin: No Condition: Stable Instructions: Abdominal Pain (ED), Acute Back Pain, Adult, Abdominal Pain, Adult Referrals: Health Dept[facility] Adult Care [Outside] - 3-5 Days Forms: Work/School Release Form(ED) Time of Disposition: 21:01
[2020-05-25] MEDS ORDERED: ONDANSETRON 4 MG/2 ML INJ IV ONE (17:45)
[2020-05-25 17:47] LABS: Basophils # (Auto) 0.1 K/mm3 (0.0-0.1); Basophils % (Auto) 1.5 % (0.0-1.8); Eosinophils # (Auto) 0.2 K/mm3 (0.0-0.4); Hemoglobin 11.7 gm/dl (10.1-14.3); Lymphocytes # (Auto) 3.1 K/mm3 (1.2-5.4); Lymphocytes % (Auto) 37.8 % (13.4-35.0); Mean Corpuscular HGB Conc 33 % (30-34); Mean Corpuscular Volume 83 fl (79-97); Monocytes # (Auto) 0.6 K/mm3 (0.0-0.8); Monocytes % (Auto) 7.7 % (0.0-7.3); Platelet Count 247 K/mm3 (140-440); Red Blood Count 4.34 M/mm3 (3.65-5.03); Red Cell Distribution Width 15.8 % (13.2-15.2)
[2020-05-25 18:10] LABS: Alanine Aminotransferase 27 units/L (7-56); Albumin 3.9 g/dL (3.9-5); BUN/Creatinine Ratio 11; Blood Urea Nitrogen 9 mg/dL (7-17); Hemolysis Index 14
[2020-05-25 20:06] LABS: Bacteria,Urine 1+ /HPF (Negative); Bilirubin,Urine NEG (Negative); Blood,Urine NEG (Negative); Color,Urine Yellow (Yellow); Mucus,Urine 3+ /HPF; Protein,Urine <15 mg/dL mg/dL (Negative); Urobilinogen,Urine < 2.0 mg/dL (<2.0)
--- NOTE | 2020-05-25 20:28 | Cat Scan Report ---
CT ABDOMEN AND PELVIS WITH CONTRAST INDICATION / CLINICAL INFORMATION: low back and abdominal pain. TECHNIQUE: Axial CT images were obtained through the abdomen and pelvis after 100 cc Omni [address] scans at this location are performed using CT dose reduction for ALARA by means of automated expos ure control. COMPARISON: None available. FINDINGS: LOWER CHEST: No significant abnormality. HEPATOBILIARY: Small area of geographic hypoattenuation at the medial right hepatic lobe suggesting f ocal fatty infiltration. Scattered calcifications about the gallbladder wall which could be intrinsic to the gallbladder wall or represent adherent stones. No biliary ductal dilatation. PANCREAS/SPLEEN/ADRENALS: No significant abnormality. GENITOURINARY: No significant abnormality. GASTROINTESTINAL/MESENTERY: Postoperative change in the left perirectal space. No evidence of acute a ppendicitis. No bowel obstruction or inflammation. No free air or significant free fluid. RETROPERITONEUM: No significant adenopathy. REPRODUCTIVE ORGANS: No significant abnormality. VASCULAR: No significant abnormality. BODY WALL: No significant abnormality. SKELETAL SYSTEM: No significant abnormality. IMPRESSION: 1. No acute abdominopelvic abnormality. 2. Small focus of fatty infiltration in the medial right hepatic lobe. 3. Gallbladder wall calcifications versus adherent gallstones. Signer Name: Zay Connolly MD Signed: 05/25/2020 8:24 PM Workstation Name: [id number]
== END 2020-05-25 21:28 | disposition home or self-care (01) ==
LOC: ED 16:54
DX: R10.9 Unspecified abdominal pain (principal); M54.9 Dorsalgia, unspecified; F17.200 Nicotine dependence, unspecified, uncomplicated; Z98.51 Tubal ligation status; Z79.899 Other long term (current) drug therapy
CPT/HCPCS: 36415; 74177; 80053; 81001; 83690; 84703; 85025; 96361; 96374; 99284; J1885; J7030; Q9967

== ENCOUNTER 2021-09-25 11:18 | Emergency (ER) | payer SELFPAY ==
--- NOTE | 2021-09-25 13:46 | XRay Report ---
CHEST 1 VIEW 09/25/2021 12:39 PM INDICATION / CLINICAL INFORMATION: Cough. Chest pain. COMPARISON: None available. FINDINGS: SUPPORT DEVICES: None. HEART / MEDIASTINUM: No significant abnormality. LUNGS / PLEURA: No significant pulmonary abnormality. No significant pleural effusion. No pneumothora x. ADDITIONAL FINDINGS: No significant additional findings. IMPRESSION: 1. No acute abnormality of the chest. Signer Name: Angel Spence MD Signed: 09/25/2021 1:41 PM Workstation Name: [id number]
--- NOTE | 2021-09-25 13:48 | XRay Report ---
XR finger(s) 2+V LT INDICATION / CLINICAL INFORMATION: pain. COMPARISON: None available. FINDINGS: No acute fracture. Normal alignment. Joint spaces are preserved. No destructive osseous lesion or s uspicious periosteal reaction. Impression: 1.No acute fracture. Signer Name: Dyllan Samuels MD Signed: 09/25/2021 1:44 PM Workstation Name: [email or web address]
[2021-09-25] MEDS ORDERED: dexAMETHasone 20 MG/5 ML VIAL IV ONE (13:49)
[2021-09-25] MEDS ORDERED: KETOROLAC 30 MG/1 ML INJ IM ONE (13:54)
--- NOTE | 2021-09-25 13:56 | Emergency Department Report ---
ED General Adult HPI - General Chief complaint: Upper Respiratory Infection Stated complaint: BROKEN PINKY/CHEST PAIN/CONGESTION Time Seen by Provider: 09/25/21 13:24 Source: patient Mode of arrival: Ambulatory Limitations: No Limitations - History of Present Illness Initial comments: 36-year-old -[place] female presents to the emergency room complaining of 2-day history of chest discomfort cough nasal congestion runny nose diarrheas since yesterday vomited x2 today. She denies any fever or chills. She states she is vaccinated but not booster. She did not get her flu vaccination. She denies any past medical history currently takes no meds on a daily basis. She also complains of left pinky injury 2 days ago. She states that there is swelling and tenderness. She does have a primary care provider Dr. Romero. She has not gotten tested for COVID. Onset/Timin -: days(s) Location: chest, left, upper extremity (Fifth digit) Severity scale (0 -10): 8 Quality: aching Consistency: constant Improves with: none Worsens with: movement Associated Symptoms: chest pain, cough, nausea/vomiting, weakness. denies: fever/chills Treatments Prior to Arrival: none - Related Data Previous Rx's Medication Instructions Recorded Last Taken Type traMADoL [Ultram] 50 mg PO Q6HR PRN #12 tablet 05/09/17 Unknown Rx Ibuprofen [Motrin] 600 mg PO Q8H PRN 5 Days #15 tablet 05/18/17 Unknown Rx Oseltamivir [Tamiflu] 75 mg PO BID 5 Days #10 cap 05/18/17 Unknown Rx Promethazine [Phenergan TAB] 25 mg PO Q8HR PRN 4 Days #12 tab 05/18/17 Unknown Rx guaiFENesin/CODEINE [Robitussin AC] 5 ml PO Q8H PRN 5 Days #75 05/18/17 Unknown Rx oral.liqd Sulfamethoxazole/Trimethoprim 1 each PO BID 7 Days #14 tablet 10/25/18 Unknown Rx [Bactrim DS TAB] Ondansetron [Zofran Odt] 4 mg PO Q8HR PRN #14 tab.rapdis 03/10/19 Unknown Rx traMADoL [Ultram 50 MG tab] 50 mg PO Q4HR PRN #14 tablet 03/10/19 Unknown Rx Ibuprofen [Motrin 800 MG tab] 800 mg PO Q8HR PRN #30 tablet 03/04/20 Unknown Rx Ibuprofen [Motrin 800 MG tab] 800 mg PO Q8HR PRN #30 tablet 09/25/21 Unknown Rx Promethazine Dm (Nf) [Phenergan DM 5 ml PO Q6H PRN #110 ml 09/25/21 Unknown Rx 6.25-15 mg/5 ml] Allergies Allergy/AdvReac Type Severity Reaction Status Date / Time No Known Allergies Allergy Verified 10/25/18 13:48 ED Review of Systems ROS: Stated complaint: BROKEN PINKY/CHEST PAIN/CONGESTION Other details as noted in HPI Comment: All other systems reviewed and negative ED Past Medical Hx - Past Medical History Previous Medical History?: No - Surgical History Additional Surgical History: tubal. tonsilectomy - Social History Smoking Status: Current Every Day Smoker Substance Use Type: None - Medications Home Medications: Home Medications Medication Instructions Recorded Confirmed Last Taken Type traMADoL [Ultram] 50 mg PO Q6HR PRN #12 tablet 05/09/17 Unknown Rx Ibuprofen [Motrin] 600 mg PO Q8H PRN 5 Days #15 tablet 05/18/17 Unknown Rx Oseltamivir [Tamiflu] 75 mg PO BID 5 Days #10 cap 05/18/17 Unknown Rx Promethazine [Phenergan TAB] 25 mg PO Q8HR PRN 4 Days #12 tab 05/18/17 Unknown Rx guaiFENesin/CODEINE [Robitussin AC] 5 ml PO Q8H PRN 5 Days #75 05/18/17 Unknown Rx oral.liqd Sulfamethoxazole/Trimethoprim 1 each PO BID 7 Days #14 tablet 10/25/18 Unknown Rx [Bactrim DS TAB] Ondansetron [Zofran Odt] 4 mg PO Q8HR PRN #14 tab.rapdis 03/10/19 Unknown Rx traMADoL [Ultram 50 MG tab] 50 mg PO Q4HR PRN #14 tablet 03/10/19 Unknown Rx Ibuprofen [Motrin 800 MG tab] 800 mg PO Q8HR PRN #30 tablet 03/04/20 Unknown Rx Ibuprofen [Motrin 800 MG tab] 800 mg PO Q8HR PRN #30 tablet 09/25/21 Unknown Rx Promethazine Dm (Nf) [Phenergan DM 5 ml PO Q6H PRN #110 ml 09/25/21 Unknown Rx 6.25-15 mg/5 ml] ED Physical Exam - General Limitations: No Limitations General appearance: alert, in no apparent distress - Head Head exam: Present: atraumatic, normocephalic - Eye Eye exam: Present: normal appearance - ENT ENT exam: Present: mucous membranes moist - Neck Neck exam: Present: normal inspection - Respiratory Respiratory exam: Present: normal lung sounds bilaterally. Absent: respiratory distress - Cardiovascular Cardiovascular Exam: Present: regular rate, normal rhythm. Absent: systolic murmur, diastolic murmur, rubs, gallop - GI/Abdominal GI/Abdominal exam: Present: soft, normal bowel sounds - Extremities Exam Extremities exam: Present: normal inspection - Expanded Upper Extremity Exam Left Shoulder Exam: Present: normal inspection Upper Arm exam: Present: normal inspection Elbow exam: Present: normal inspection Forearm Wrist exam: Present: normal inspection Hand Wrist exam: Present: full ROM, swelling (Fifth digit), other (Wearing very long fingernails) Vascular: Present: normal capillary refill. Absent: vascular compromise, Pallo - Back Exam Back exam: Present: normal inspection - Neurological Exam Neurological exam: Present: alert, oriented X3, normal gait - Psychiatric Psychiatric exam: Present: normal affect, normal mood - Skin Skin exam: Present: warm, dry, intact, normal color. Absent: rash ED Course Vital Signs 09/25/21 13:07 Temperature 98.8 F Pulse Rate 80 Respiratory 18 Rate Blood Pressure 116/78 O2 Sat by Pulse 96 Oximetry ED Medical Decision Making - Radiology Data Radiology results: report reviewed [facility] [address] [place] [address] XRay Report Signed Patient: ELY NUNO MR#: [id number] : 1985 Acct:[id number] Age/Sex: 36 / F ADM Date: 09/25/21 Loc: ED Attending Dr: Ordering Physician: MODESTA SOTELO Date of Service: 09/25/21 Procedure(s): XR chest 1V ap Accession Number(s): [id number] cc: MODESTA Ahumada Time In Minutes: CHEST 1 VIEW 09/25/2021 12:39 PM INDICATION / CLINICAL INFORMATION: Cough. Chest pain. COMPARISON: None available. FINDINGS: SUPPORT DEVICES: None. HEART / MEDIASTINUM: No significant abnormality. LUNGS / PLEURA: No significant pulmonary abnormality. No significant pleural effusion. No pneumothorax. ADDITIONAL FINDINGS: No significant additional findings. IMPRESSION: 1. No acute abnormality of the chest. Signer Name: Angel Spence MD Signed: 09/25/2021 1:41 PM Workstation Name: [id number] Transcribed By: LAYLA Dictated By: Angel Spence MD Electronically Authenticated By: Angel Spence MD Signed Date/Time: 09/25/21 134 DD/ 134 TD/TT: [facility] [address] [place] [address] XRay Report Signed Patient: ELY NUNO MR#: [id number] : 1985 Acct:[id number] Age/Sex: 36 / F ADM Date: 09/25/21 Loc: ED Attending Dr: Ordering Physician: MODESTA SOTELO Date of Service: 09/25/21 Procedure(s): XR finger(s) 2+V LT Accession Number(s): [id number] cc: MODESTA SOTELO Fluoro Time In Minutes: XR finger(s) 2+V LT INDICATION / CLINICAL INFORMATION: pain. COMPARISON: None available. FINDINGS: No acute fracture. Normal alignment. Joint spaces are preserved. No destructive osseous lesion or suspicious periosteal reaction. Impression: 1.No acute fracture. Signer Name: Dyllan Samuels MD Signed: 09/25/2021 1:44 PM Workstation Name: [id number] Transcribed By: Dictated By: Dyllan Samuels MD Electronically Authenticated By: Dyllan Samuels MD Signed Date/Time: 09/25/21 1344 DD/ 1343 TD/TT: Print - Medical Decision Making 36-year-old -[place] female presents to the emergency room complaining of 2-day history of chest discomfort cough nasal congestion runny nose diarrheas since yesterday vomited x2 today. She denies any fever or chills. She states she is vaccinated but not booster. She did not get her flu vaccination. She denies any past medical history currently takes no meds on a daily basis. She also complains of left pinky injury 2 days ago. She states that there is swelling and tenderness. She does have a primary care provider Dr. Romero. She has not gotten tested for COVID. Chest x-ray shows no acute abnormalities. X-ray of left hand shows no acute bony abnormalities. Patient will be given a dexamethasone 10 mg IM and Toradol 30 mg IM for pain and cough. Patient be discharged home on Promethazine DM and a referral to her primary care provider. Critical care attestation.: If time is entered above; I have spent that time in minutes in the direct care of this critically ill patient, excluding procedure time. ED Disposition Clinical Impression: Viral upper respiratory tract infection with cough Fingertip contusion Qualifiers: Encounter type: initial encounter Qualified Code(s): S60.00XA - Contusion of unspecified finger without damage to nail, initial encounter Disposition: HOME / SELF CARE / HOMELESS Is pt being admited?: No Does the pt Need Aspirin: No Condition: Stable Instructions: Viral Respiratory Infection, [id number] Additional Instructions: Your symptoms appear most consistent with a nonspecific viral syndrome. However, given this current pandemic, COVID-19 is in the differential of possibilities. Despite your previous negative COVID-19 test, I do recommend repeat outpatient Covid 19 testing. In the meantime, isolate/quarantine yourself and stay away from anyone who is elderly, immunocompromised or chronically ill. You can use ibuprofen every 6-8 hours and Tylenol every 4-8 hours, using the dosing on the back of the bottle, as needed for any fever or body aches. Return to the emergency department with any worsening of your symptoms, development of chest pain or shortness of breath, or with any acute distress. Prescriptions: Ibuprofen [Motrin 800 MG tab] 800 mg PO Q8HR PRN #30 tablet PRN Reason: Pain , Severe (7-10) Promethazine Dm (Nf) [Phenergan DM 6.25-15 mg/5 ml] 5 ml PO Q6H PRN #110 ml PRN Reason: Cough Referrals: DEBBIE ROMERO JR, MD [Staff Physician] - 3-5 Days
[2021-09-25 15:54] VITALS: BP 129/70
== END 2021-09-25 15:53 | disposition home or self-care (01) ==
LOC: ED 11:18
DX: S60.00XA Contusion of unspecified finger without damage to nail, initial encounter (principal); J06.9 Acute upper respiratory infection, unspecified; X58.XXXA Exposure to other specified factors, initial encounter; Y93.89 Activity, other specified; Y92.89 Other specified places as the place of occurrence of the external cause; Y99.8 Other external cause status
CPT/HCPCS: 71045; 73140; 96372; 96374; 99283; J1100; J1885